=== PATIENT | male | born 1965 | race Caucasian/White ===

== ENCOUNTER 2016-10-07 05:57 | Day surgery (SDC) | payer MEDICAID ==
[2016-10-07] MEDS ORDERED: LR 1,000 ML IV ONE (06:46)
[2016-10-07] MEDS ORDERED: MIDAZOLAM 2 MG/2 ML VIAL IVP ONE (06:54)
--- NOTE | 2016-10-07 06:54 | PDANEPAE ---
ANE History of Present Illness presents for routine colonoscopy ANE Past Medical History - Cardiovascular History Hx Hypertension: No Hx Arrhythmias: No Hx Chest Pain: No Hx Coronary Artery / Peripheral Vascular Disease: No Hx CHF / Valvular Disease: No Hx Palpitations: No Cardiovascular History Comment: PULSE RUNS LOW - Pulmonary History Hx COPD: No Hx Asthma/Reactive Airway Disease: No Hx Recent Upper Respiratory Infection: No Hx Oxygen in Use at Home: No Hx Sleep Apnea: No Sleep Apnea Screening Result - Last Documented: Negative - Neurologic History Hx Cerebrovascular Accident: No Hx Seizures: No Hx Dementia: No - Endocrine History Hx Diabetes: No - Renal History Hx Renal Disorders: No - Liver History Hx Hepatic Disorders: No - Neurological & Psychiatric Hx Hx Neurological and Psychiatric Disorders: Yes Neurological / Psychiatric History Comment: BIPOLAR - Cancer History Hx Cancer: No - Congenital Disorder History Hx Congenital Disorders: No - GI History Hx Gastrointestinal Disorders: No - Other Health History Other Health History: NEG - Chronic Pain History Chronic Pain: No - Surgical History Prior Surgeries: TONSILLECTOMY ANE Review of Systems - Exercise capacity METS (RN): 5 METS ANE Patient History - Allergies Allergies/Adverse Reactions: No Known Allergies Allergy (Unverified 09/23/16 10:22) - Home Medications Home medications: home medication list seen and reviewed Home Medications: Abilify 09/23/16 [Last Taken Unknown] [employer] Carbonate 09/23/16 [Last Taken Unknown] Viibryd 09/23/16 [Last Taken Unknown] - NPO status NPO Since - Liquids (Date): 10/06/16 NPO Since - Liquids (Time): 22:00 NPO Since - Solids (Date): 10/06/16 NPO Since - Solids (Time): 09:30 - Anes Hx Anes Hx: no prior problems - Smoking Hx Smoking Status: Never smoked ANE Labs/Vital Signs - Vital Signs Blood Pressure: 111/75 Heart Rate: 46 Respiratory Rate: 16 O2 Sat (%): 95 Height: 177.8 cm Weight: 72.575 kg ANE Physical Exam - Airway Neck exam: FROM Mallampati Score: Class 1 Mouth exam: normal dental/mouth exam - Pulmonary Pulmonary: no respiratory distress - Cardiovascular Cardiovascular: regular rate and rhythym - ASA Status ASA Status: II ANE Anesthesia Plan Anesthesia Plan: MAC
[2016-10-07] MEDS: LIDOCAINE 1% 2 ML INJ ID PRN ×2 (06:57→07:13)
[2016-10-07] MEDS ORDERED: PROPOFOL 200 MG/20 ML VIAL ONE ×4 (07:07→07:12)
[2016-10-07] MEDS ORDERED: MIDAZOLAM 2 MG/2 ML VIAL ONE (07:28)
--- NOTE | 2016-10-07 07:32 | PDGENHP ---
History & Physical Chief Complaint: colon screening History of Present Illness: colon screening Pertinent Past, Social, Family History: none pertinent Relevant Physical Exam: NAD. reg respirations, clear, unlabored. RRR
[2016-10-07] MEDS ORDERED: ONDANSETRON 4 MG/2 ML VIAL IVP PRN (08:09)
[2016-10-07] MEDS ORDERED: NALOXONE HCL 0.4 MG/ML INJ IVP PRN (08:09)
--- NOTE | 2016-10-07 08:09 | POSTANESTH ---
Post Anesthetic Evaluation Cardiovascular Status: Normal, Stable Respiratory Status: Normal, Stable Level of Consciousness/Mental Status: Can Participate in Eval Pain Control: Adequate, Prn Tx Ordered Nausea/Vomiting Control: Adequate, Prn Tx Ordered Complications Possibly Related to Anesthesia: None Noted
[2016-10-07 09:19] VITALS: TEMP 97.9
--- NOTE | 2016-10-07 09:22 | GPN ---
[f rep st] PROCEDURE NOTE DATE OF PROCEDURE: 10/07/2016 PROCEDURE: Colonoscopy with snare polypectomy. INDICATION: Average risk colon cancer screening. CONSENT: Informed consent was obtained from the patient after an explanation of risks, benefits, an d alternatives to the procedure. MEDICATIONS GIVEN: Per Anesthesia. LEVEL OF ANESTHESIA: Propofol per Anesthesia. ESTIMATED BLOOD LOSS: None. COMPLICATIONS: None. DESCRIPTION OF EXAMINATION: After adequate sedation was achieved, the colonoscope was advanced unde r direct vision through the anal canal and as far as the cecum, appendiceal orifice, and terminal il ium. The terminal ilium, appendiceal orifice, and rectum were photographed. Retroflexion was perfo rmed in both the ascending colon and the rectum. Findings are as noted below. QUALITY OF PREPARATION: Adequate although extensive washing was required in the right colon. VIEWS: Good. FINDINGS: 1. Normal terminal ileum. 2. 3 mm sessile polyp in the cecum adjacent to the appendiceal orifice was found. This was removed with cold snare polypectomy, retrieved, and sent for pathology. 3. A 4 mm sessile polyp was found in the mid transverse colon, removed with cold snare polypectomy, and retrieved. It was then sent to Pathology. 4. Medium-sized internal hemorrhoids were seen. IMPRESSION: 2 polyps removed from the right colon, and internal hemorrhoids were noted. RECOMMENDATIONS: 1. If either or both polyps are adenomas, then repeat colonoscopy for surveillance will be recommen ded in 5 years. If neither polyp is an adenoma, then repeat colonoscopy for average risk screening can be performed in 10 years. 2. If hemorrhoids are causing prolapse, itching, or bleeding, patient may call to schedule hemorrho idal banding. 3. Resume regular diet. 4. Resume regular medications. /[id number]/MODL
[2016-10-07 09:59] VITALS: BP 115/65; RESP 16; O2SAT 96
[2016-10-07 17:12] VITALS: PULSE 60
== END 2016-10-07 09:55 | disposition home or self-care (01) ==
LOC: FSGY 05:57
PROVIDERS: ATTEND Internal Medicine
PROC: 0DBH8ZX Excision of Cecum, Via Natural or Artificial Opening Endoscopic, Diagnostic (ICD-10-PCS; principal; 2016-10-07 07:30)
PROC: 0DBL8ZX Excision of Transverse Colon, Via Natural or Artificial Opening Endoscopic, Diagnostic (ICD-10-PCS; principal; 2016-10-07 07:30)
DX: Z12.11 Encounter for screening for malignant neoplasm of colon (principal); D12.0 Benign neoplasm of cecum; D12.3 Benign neoplasm of transverse colon; K64.8 Other hemorrhoids
CPT/HCPCS: J2250; J2704